=== PATIENT | female | born 1950 | race Caucasian/White ===

== ENCOUNTER → 2018-07-03 18:33 | Outpatient (CLI) | payer MEDICARE, OTHER, SELFPAY ==
[2018-07-03 18:35] LABS: Bacteria 0 SEEN /hpf (None Seen); Mucous, Urine 0 SEEN /hpf (<or=2+); Squamous Epithelial Cells - UA 0 SEEN /hpf (5-10)
[2018-07-03 18:45] LABS: Color, Urine Straw (Yellow); Glucose, Dipstick Normal (Normal); Ketone-Dipstick Negative (Negative); Leukocyte Esterase-Dipstick 500 /ul (Negative); Nitrite-Dipstick Negative (Negative); Occult Blood-Urine 250 /ul (Negative); Protein-Dipstick Negative (Negative); Specific Gravity, Urine 1.005 (1.002-1.030); Urine Bilirubin Dipstick Negative (Negative); Urine Clarity Clear (Clear); Urine Urobilinogen Normal (Normal)
[2018-07-03 19:03] LABS: White Blood Cells 25-50 SEEN /hpf (0-5)
[2018-07-03 19:04] LABS: Red Blood Cells-Urine 0-5 SEEN /hpf (0-5)
== END ==
PROVIDERS: Visit Provider Physician Assistant Surgical
DX: R39.15 Urgency of urination (principal)
CPT/HCPCS: 81001; 87077; 87086; 87088

== ENCOUNTER → 2018-09-08 14:26 | Outpatient (CLI) | payer MEDICARE, OTHER, SELFPAY ==
--- NOTE | 2018-09-08 14:29 | BI_ITS ---
MAMMOGRAPHY - BILATERAL SCREENING REASON FOR EXAM: Female, 68 years old. Routine annual screening examination. PERTINENT HISTORY: Non-contributory. TECHNIQUE: Digital bilateral breast chino (3D mammographic acquisition) in the CC and MLO projections. 2-D mediolateral oblique (MLO) and craniocaudad (CC) views of both breasts were obtained. CAD: Full Field Digital Mammography with Computer Added Detection was performed. COMPARISON: Comparison is made with prior study July 11, 2017 and March 21, 2016. FINDINGS: Breast Composition: The breasts are heterogeneously dense, which may obscure small masses. There are no dominant masses or suspicious calcifications. No other significant abnormalities are identified. There has been no significant change since the prior study. BI/SCREENING MAMM (CAD), BILAT IMPRESSION: Stable bilateral screening mammogram. Yearly follow-up mammogram recommended. (A) ASSESSMENT CATEGORY: BIRADS Category 2: Benign. A letter regarding these results will be sent to the patient by the facility within 30 days. Approximately 10% of breast cancers are not detected by mammography. A normal mammogram should not delay biopsy of a clinically suspicious abnormality. [id number] Electronically Signed: Kamari Prasad MD at 9:27 EST Tel [phone], Service support ,
--- NOTE | 2018-09-08 14:30 | BD_ITS ---
STUDY: DUAL ENERGY X-RAY ABSORPTIOMETRY / DXA REASON FOR EXAM: Female, 68 years old. The patient is postmenopausal. Loss of height. TECHNIQUE: Bone Mineral Density (BMD) measurements of lumbar spine and bilateral hips were obtained. COMPARISON: Comparison is made with prior study dated March 21, 2016. FINDINGS: Lumbar Spine (L1-L4): g/cm2 (1.176) / T-score (0.1) / Z-score (1.8) Findings are suggestive of normal bone density with a low fracture risk. Increased thoracic kyphosis. Left Femur Total: g/cm2 (0.769) / T-score (-1.9) / Z-score (-0.4) Left Femoral Neck: g/cm2 (0.797) / T-score (-1.7) / Z-score (0.0) Right Femur Total: g/cm2 (0.832) / T-score (-1.4) / Z-score (0.1) Right Femoral Neck: g/cm2 (0.841) / T-score (-1.4) / Z-score (0.3) The T-Scores on the most recent prior examination were: Lumbar Spine (L1-L4): There has been worsening of bone density since the previous examination. Left Femur Total: which represents a worsening of 7.3%. Right Femur Total: which represents a worsening of 1.8%. BD/Dexa Bone Density Study IMPRESSION: The patient is considered osteopenic as outlined below according to World Madhu Organization (WHO) criteria with a moderate fracture risk. There has been worsening of bone density since the previous examination. Reference Information: The T-score is the number of standard deviations above or below the standard which is normal for young adults at their peak bone mineral density. The World Health Organization (WHO) interprets the T-scores as follows: Above -1 Normal bone density Between -1 and -2.5 Osteopenia Equal to / or below -2.5 Osteoporosis As a practical clinical guideline, osteopenia may be graded as follows: Mild -1 through -1.5 Moderate -1.6 through -2.0 Severe -2.1 through -2.4 The Z-score is the number of standard deviations above or below age-matched controls. A Z-score of less than -1.5 would be considered abnormal. References: 1. NIH Osteoporosis and Related Bone Diseases http://www.osteo.org 2. International Society for Clinical Densitometry http://www.iscd.org 3. National Osteoporosis Foundation http://www.nof.org Electronically Signed: Kamari Prasad MD at 7:53 EST Tel [phone], Service support ,
== END ==
PROVIDERS: Family Provider Internal Medicine; PCP Internal Medicine; Visit Provider Internal Medicine
DX: Z12.31 Encounter for screening mammogram for malignant neoplasm of breast (principal); Z78.0 Asymptomatic menopausal state
CPT/HCPCS: 77063; 77067; 77080

== ENCOUNTER → 2018-10-21 10:52 | Outpatient (CLI) | payer MEDICARE, OTHER, SELFPAY ==
[2018-09-16 13:59] VITALS: BMI 30.2
--- NOTE | 2018-10-21 10:56 | ECHOD_ITS ---
Procedure This was a 2D Doppler, Color Flow transthoracic echocardiogram. The exam was of adequate technical quality. Exam performed in department. Left Ventricle Normal LV size. Left ventricular systolic function is normal. The estimated ejection fraction is 60 %. Diastolic function is indeterminate. No regional wall motion abnormalities noted. Right Ventricle Normal RV size. Normal systolic function. Atria Normal left atrium. Normal right atrium. No doppler evidence for ASD. Mitral Valve There is no mitral annular calcification. Equivocal mitral valve prolapse. Mild (1+) mitral valve insufficiency. Tricuspid Valve Normal tricuspid valve. Mild to moderate (1-2+) tricuspid valve insufficiency. Right ventricular systolic pressure estimated to be 27 mmHg. Aortic Valve Trisinus/trileaflet aortic valve. Normal aortic valve. Trivial aortic valve insufficiency. Pulmonic Valve The pulmonic valve is not well visualized. Mild (1+) pulmonic valve insufficiency. Great Vessels Normal sized aortic root. Pericardium/Pleural Small pericardial effusion. There are no echocardiographic indications of cardiac tamponade. MMode/2D Measurements & Calculations LVIDd: 4.3 cm IVSd: 0.70 cm Ao root diam: 3.3 cm LVIDs: 3.0 cm LVPWd: 0.83 cm RVDd: 3.1 cm FS: 31.3 % LAV(MOD-bp): 29.5 ml EDV(MOD-sp4): 75.6 ml EDV(MOD-sp2): 76.4 ml LAV(MOD-bp) Indexed: 18.1 ml/m2 ESV(MOD-sp4): 33.4 ml EF(MOD-sp2): 62.3 % LAV(MOD-sp2): 25.4 ml EF(MOD-sp4): 55.9 % LAV(MOD-sp4): 33.1 ml SV(MOD-sp4): 42.2 ml SV(MOD-sp2): 47.6 ml LA A4 area: 13.9 cm2 LA dimension(2D): 3.6 cm RA A4 area: 14.5 cm2 Time Measurements MV dec time: 0.21 sec Doppler Measurements & Calculations MV E max julian: 67.7 cm/sec Lat Peak E' Julian: 4.9 cm/sec Med Peak E' Julian: 3.4 cm/sec MV A max julian: 79.0 cm/sec E/E' lat: 13.8 E/E' med: 19.8 MV E/A: 0.86 Ao V2 max: 118.2 cm/sec LV V1 max: 78.6 cm/sec PA V2 max: 101.5 cm/sec Ao max P.6 mmHg LV V1 max P.5 mmHg PI end-d julian: 87.9 cm/sec TR max julian: 241.7 cm/sec TR max P.5 mmHg Interpretation Summary Left ventricular systolic function is normal. The estimated ejection fraction is 60 %. Equivocal mitral valve prolapse. Mild (1+) mitral valve insufficiency. Mild to moderate (1-2+) tricuspid valve insufficiency. Trivial aortic valve insufficiency. Mild (1+) pulmonic valve insufficiency. Small pericardial effusion. There are no echocardiographic indications of cardiac tamponade. Right ventricular systolic pressure estimated to be 27 mmHg. Diastolic function is indeterminate. Ordering Physician: Reuben Dee Referring Physician: Reuben Dee Performed By: Catia Alvarez, RDCS, RVT
== END ==
PROVIDERS: Family Provider Internal Medicine; PCP Internal Medicine; Referring Provider Internal Medicine Cardiovascular Disease; Visit Provider Internal Medicine Cardiovascular Disease
DX: I10 Essential (primary) hypertension (principal); I31.3 Pericardial effusion (noninflammatory); I38 Endocarditis, valve unspecified
CPT/HCPCS: 93306

== ENCOUNTER 2018-12-02 06:48 | Day surgery (SDC) | payer MEDICARE, OTHER, SELFPAY ==
[2018-09-16 13:59] VITALS: BMI 30.2
[2018-12-02] VITALS (7 sets, daily range): BP systolic 104–156; BP diastolic 61–90; PULSE 51–72; RESP 16–18; TEMP 36.4–37.1; O2SAT 97–100; BMI 29.7
--- NOTE | 2018-12-02 08:34 | OP.ENDO_ITS ---
Patient Name: Chaya Ravi Procedure Date: 12/02/2018 7:49 AM Date of : 1950 Age: 68 Procedure: Colonoscopy Indications: Family history of colon cancer in a first-degree relative Providers: Christophe Gomez MD Medicines: See the Anesthesia note for documentation of the administered medications Patient Profile: This is a 68 year old female. Refer to note in patient chart for documentation of history and physical. Last Colonoscopy: 5 years ago. Complications: No immediate complications. Procedure: Pre-Anesthesia Assessment: - Prior to the procedure, a History and Physical was performed, and patient medications and allergies were reviewed. The patient's tolerance of previous anesthesia was also reviewed. The risks and benefits of the procedure and the sedation options and risks were discussed with the patient. All questions were answered, and informed consent was obtained. Prior Anticoagulants: The patient has taken no previous anticoagulant or antiplatelet agents. ASA Grade Assessment: II - A patient with mild systemic disease. After reviewing the risks and benefits, the patient was deemed in satisfactory condition to undergo the procedure. After I obtained informed consent, the scope was passed under direct vision. Throughout the procedure, the patient's blood pressure, pulse, and oxygen saturations were monitored continuously. The colonoscope was introduced through the anus and advanced to the cecum, identified by appendiceal orifice and ileocecal valve. The colonoscopy was performed without difficulty. The patient tolerated the procedure well. The quality of the bowel preparation was good. Scope In: 8:02:12 AM Scope Withdrawal Time 0 hours 6 minutes 3 seconds Scope Out: 8:18:46 AM Total Procedure Duration Time 0 hours 16 minutes 34 seconds Findings: The perianal and digital rectal examinations were normal. A few small-mouthed diverticula were found in the sigmoid colon. No biopsies or other specimens were collected for this exam. Non-bleeding internal hemorrhoids were found during retroflexion. The hemorrhoids were mild and small. The exam was otherwise without abnormality. Impression: - Diverticulosis in the sigmoid colon. No specimens collected. - Non-bleeding internal hemorrhoids. - The examination was otherwise normal. Recommendation: - Discharge patient to home. - Resume previous diet. - Continue present medications. - Await pathology results. - Repeat colonoscopy in 5 years for surveillance. - Return to primary care physician PRN. Procedure Code(s): --- Professional --- 96075, Colonoscopy, flexible; diagnostic, including collection of specimen(s) by brushing or washing, when performed (separate procedure) Diagnosis Code(s): --- Professional --- K64.8, Other hemorrhoids Z80.0, Family history of malignant neoplasm of digestive organs K57.30, Diverticulosis of large intestine without perforation or abscess without bleeding CPT copyright 2017 [employer]. All rights reserved. The codes documented in this report are preliminary and upon juvenile counselor review may be revised to meet current compliance requirements. MD Christophe Domínguez MD 12/02/2018 8:34:44 AM This report has been signed electronically. Number of Addenda: 0 Note Initiated On: 12/02/2018 7:49 AM
--- NOTE | 2018-12-02 08:34 | PCM.HP.STD ---
Problem List (1) Family history of colon cancer Status: Acute History of Present Illness Date of Admission: 12/02/18 The patient is a 68 year old F who presents for a colonoscopy. Her last colonoscopy was [address] Garcia. She is unsure if he found polyps at that time. She does have a family history of colon cancer. Past Medical History Past Medical History (Chronic Problems): Chronic Problems (Last Reviewed 09/16/18 @ 14:01 by Jessica Haynes) Essential hypertension (Chronic) Medical History: Medical History (Last Reviewed 12/02/18 @ 08:35 by Christophe Gomez MD) Valvular heart disease (Acute) I38 Essential hypertension (Chronic) I10 Pericardial effusion (Acute) I31.3 Arthritis M19.90 Knee pain M25.569 Hyperlipemia E78.5 HTN (hypertension) I10 Allergies No Known Allergies Allergy (Verified 11/30/18 09:52) Home Medications: Ambulatory Orders Medication Instructions Recorded calcium carbonate 500 mg calcium 1,200 mg PO DAILY tab 07/03/18 (1,250 mg) tablet meloxicam 7.5 mg tablet 7.5 mg PO DAILY 07/03/18 potassium 99 mg tablet 99 mg PO DAILY 07/03/18 vitamins A,C,Y-acnd-vjjmvr 14,320 2 cap PO DAILY 07/03/18 unit-226 mg-200 unit capsule Cholecalciferol (VIT D3) [Vitamin 2,000 unit PO DAILY 11/30/18 D] Losartan/Hydrochlorothiazide 1 each PO DAILY 11/30/18 [Losartan-Hctz 100-25 mg Tab] Turmeric Root Extract [Turmeric] 500 mg PO DAILY 11/30/18 Surgical History: Surgical History (Last Reviewed 12/02/18 @ 08:35 by Christophe Gomez MD) History of appendectomy Z90.49 History of basal cell carcinoma excision Z98.890, Z85.828 History of section Z98.891 History of tonsillectomy Z90.89 History of tubal ligation Z98.51 Smoking Status: Never smoker Tobacco Use: Non-smoker Review of Systems Constitutional: Denies: Chills, Fever, Weight Change Cardiovascular: Denies: Chest Pain, Chest Pressure, Chest Tightness, Palpitations Respiratory: Denies: Cough, Hemoptysis, Shortness of breath at rest, Shortness of breath upon exertion, Wheezing Gastrointestinal: Denies: Abdominal Pain, Constipation, Diarrhea, Hematemesis, Nausea, Melena, Vomiting VTE Information - Inpt Only VTE Present on Admission: No VTE Mechan Device Prophylaxis: None VTE Pharm Prophylaxis ordered?: No Reason prophylaxis not ordered:: Treatment Not Indicated Patient Problems: Active and Suspected Problems (Last Reviewed 09/16/18 @ 14:01 by Jessica Haynes) Family history of colon cancer (Acute) - Physical Exam General: Alert, Oriented x3 Lungs: Clear to auscultation Cardiovascular: Regular rate, Regular Rhythm, No murmurs Abdomen: Bowel Sounds Present, Soft, Non Tender, Non-Distended Vital Signs Temp Pulse Resp BP Pulse Ox 97.6 F L 55 L 18 104/62 99 12/02/18 08:23 12/02/18 08:30 12/02/18 08:30 12/02/18 08:30 12/02/18 08:30 Oxygen Delivery Method Room Air Weight: 147 lb 0.773 oz Body Mass Index (BMI) 29.7 Assessment/Plan All Active Problems (Last Reviewed 09/16/18 @ 14:01 by Jessica Haynes) Family history of colon cancer (Acute) Valvular heart disease (Acute) Pericardial effusion (Acute) Cystitis (Acute) Plan will be to perform a colonoscopy on the patient.
== END 2018-12-02 09:08 | disposition home or self-care (01) ==
LOC: EN 06:48 → AC 06:49
PROVIDERS: Family Provider Internal Medicine; PCP Internal Medicine; Referring Provider Surgery; Visit Provider Surgery
PROC: 0DJD8ZZ Inspection of Lower Intestinal Tract, Via Natural or Artificial Opening Endoscopic (ICD-10-PCS; CPT 45378; principal; 2018-12-02 07:55)
DX: Z12.11 Encounter for screening for malignant neoplasm of colon (principal); K57.30 Diverticulosis of large intestine without perforation or abscess without bleeding; K64.8 Other hemorrhoids; N30.00 Acute cystitis without hematuria; I31.3 Pericardial effusion (noninflammatory); I10 Essential (primary) hypertension; E78.5 Hyperlipidemia, unspecified; M19.90 Unspecified osteoarthritis, unspecified site; Z78.0 Asymptomatic menopausal state; Z79.899 Other long term (current) drug therapy; Z85.828 Personal history of other malignant neoplasm of skin; Z98.51 Tubal ligation status; Z80.0 Family history of malignant neoplasm of digestive organs
CPT/HCPCS: G0105; J7120

== ENCOUNTER → 2019-10-25 13:15 | Outpatient (CLI) | payer MEDICARE, OTHER, SELFPAY ==
[2018-12-02 07:09] VITALS: BMI 29.7
[2019-10-06 10:04] VITALS: BMI 30.4
--- NOTE | 2019-10-25 13:18 | BI_ITS ---
MAMMOGRAPHY - BILATERAL SCREENING REASON FOR EXAM: Female, 69 years old. Routine annual screening examination. PERTINENT HISTORY: Non-contributory. TECHNIQUE: Digital bilateral breast victor manuel (3D mammographic acquisition) in the CC and MLO projections. 2-D mediolateral oblique (MLO) and craniocaudad (CC) views of both breasts were obtained. CAD: Full Field Digital Mammography with Computer Added Detection was performed. COMPARISON: Comparison is made with prior study dated September 08, 2018 and July 11, 2017. FINDINGS: Breast Composition: The breasts are heterogeneously dense, which may obscure small masses. There are no dominant masses or suspicious calcifications. No other significant abnormalities are identified. There has been no significant change since the prior study. BI/SCREEN MAMM (CAD) W/VICTOR MANUEL BILAT IMPRESSION: Stable bilateral screening mammogram. Yearly follow-up mammogram recommended. (A) ASSESSMENT CATEGORY: BIRADS Category 1: Negative. A letter regarding these results will be sent to the patient by the facility within 30 days. Approximately 10% of breast cancers are not detected by mammography. A normal mammogram should not delay biopsy of a clinically suspicious abnormality. [id number] Electronically Signed: Kamari Prasad, at 14:23 EST , Service support ,
== END ==
PROVIDERS: Family Provider Internal Medicine; PCP Internal Medicine; Referring Provider Internal Medicine; Visit Provider Internal Medicine
DX: Z12.31 Encounter for screening mammogram for malignant neoplasm of breast (principal)
CPT/HCPCS: 77063; 77067

== ENCOUNTER 2019-12-13 09:00 | Outpatient (RCR) | payer MEDICARE, OTHER, SELFPAY ==
[2019-10-06 10:04] VITALS: BMI 30.4
--- NOTE | 2019-11-19 09:09 | HP.PTEVAL ---
Patient's Visit Information FRANCINE SWEENEY is a 69 year old F referred to Physical Therapy by Hubert Pretty MD with a diagnosis of Left Total Knee Replacement. Date of Evaluation: 11/19/19 Physical Therapist: Cammy Juan DPT - Visit Plan Frequency: 3x /Week Duration: 3 Weeks Plan: Focus on LE strength and ROM with functional mobility. - Subjective Findings: Left TKR by Dr. Pretty on November 03, 2019- went home the next day. Lives in a double story home and is able to go up/down. Ditched the walker maybe a wek and has been on a cane since. Fully I prior to surgery- wants to get back to Kayaking. Pain at its worst is a 8/10 Agg: usually towards the end of the pain medication, movement. Pain is more of a deep ache and its around the whole knee. One time a day the top of the left foot is sore- no N/T in the foot. She saw MD on Friday who encouraged her to put a heating pad on the calf and ice on the knee- took the stephanie out Friday. Sleep: is normally a belly sleeper- disturbed. Had someone come to the house and they gave her exercises that she is doing faithfully 3x a day. PMHx:none Meds: none- Is still taking pain meds every 6 hours - Objective Posture: FH, RS, increased kyphosis- can correct but does not maintain. Gait: antalgic- single point cane- decreased stance on the left LE with poor heel/toe pattern. Stairs: non recip with 1 HR and single point cane. HR/TR: able with UE A. SLS: weight shift but unable to SLS without UE A. Observation: steri strips intact- no s/s of infection. Palpatoin: tender along medial and lateral joint line- posterior knee. ROM: 0-95 degrees with pain at end range. Strength: Ankle: 5/5, Knee: 4/5, Hip: 4-/5 Core: fair minus. Flex: HS: severe, Gastroc: severe - Goals Goal 1:: Patient will be I with HEP and progression Goal Time Frame: 4-6 Weeks Goal 2:: Patient will ambulate >300 feet with normalized gait pattern with no AD Goal Time Frame: 4-6 Weeks Goal 3:: Patient will asc/desc 8 stairs recip with no HR Goal Time Frame: 4-6 Weeks Goal 4:: Patient will demo 0-125 degrees in the left knee Goal Time Frame: 4-6 Weeks Goal 5:: Patient will demo 5/5 strength in LE where deficit. Goal Time Frame: 4-6 Weeks - Rehabilitation Potential Physical Therapy Diagnosis: Patient presents with hypomobility- she has decreased ROM, strength, flex and muscular endurance s/p left TKR leading to abnormal gait pattern and decreased participation in ADL's. Rehabilitation Potential: Good - Anticipated Interventions Patient/Client Instruction: Educate patient on: Benefits of Fitness Program Therapeutic Exercise to Include: Strength training, Endurance training, Balance training, Body mechanics, Postural training, Flexibilty training, Gait and locomotor training, Neuromotor development, Passive ROM, Active ROM For the Purpose of:: To improve muscle performance and motor function TENS: Yes Cryotherapy (ice pack, ice massage): Yes Thermo therapy (hot pack): Yes Ultrasound (thermal/non thermal): No Thank you for the opportunity to evaluate your patient. For Medicare and Medicare HMO plans, please review the plan of care and approve it. It will need to be FAXED BACK to us at [phone] for Medicare purposes. For Medicare only, by signing this I certify the plan of care. Please let me know if there are questions or concerns regarding this plan of care. Physician Signature: Date:
--- NOTE | 2019-12-13 09:28 | HP.PTDCSUM_ITS ---
HP - PT D/C Summary It has been my pleasure to treat FRANCINE SWEENEY under orders from Hubert Pretty MD, for the diagnosis of Left Total Knee Replacement for a total of 10 visit(s). Discharge Date: Please see the following information for a summary of their discharge status. - Subjective Subjective: Patient reports that she is happy with progress- MD feels that she is doing great- her biggest complaint is that it still feels stiff. The only thing she is taking is an Ibuprofen as needed. She is only getting up 1x during the night to use the restroom. - Overall Improvement % Improvement: 95 - Objective Objective/Function: Posture: good throughout. Gait: no devaition noted. Stairs: asc/desc 8 recip with 1 HR. SLS: 15 sec no LOB. HR/TR: able. ROM: 0- 118 degrees. Strength: 5/5 throughout LE - Goals Goal 1:: Patient will be I with [facility] and progression Goal Progress: Goal Met Goal 2:: Patient will ambulate >300 feet with normalized gait pattern with no AD Goal Progress: Goal Met Goal 3:: Patient will asc/desc 8 stairs recip with no HR Goal Progress: Goal Met Goal 4:: Patient will demo 0-115 degrees in the left knee Goal Progress: Goal Met Goal 5:: Patient will demo 5/5 strength in LE where deficit. Goal Progress: Goal Met - Plan Plan: Discharge to [facility] with yee odonnell - D/C Information If there are questions or concerns regarding this patient's physical therapy, please feel free to call me at [phone]. Thank you for the referral of this patient. Sincerely, Cammy Juan DPT
== END 2019-12-13 19:00 | disposition home or self-care (01) ==
LOC: PT 09:00
PROVIDERS: PCP Internal Medicine; Referring Provider Orthopaedic Surgery; Visit Provider Orthopaedic Surgery
DX: M17.12 Unilateral primary osteoarthritis, left knee (principal)
CPT/HCPCS: 97110; 97162; 97164

== ENCOUNTER → 2020-10-18 09:21 | Outpatient (CLI) | payer MEDICARE, OTHER, SELFPAY ==
[2019-10-06 10:04] VITALS: BMI 30.4
--- NOTE | 2020-10-18 09:30 | BD_ITS ---
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 COMPARISON: Comparison is made with prior study dated 09/08/2018. FINDINGS: Lumbar Spine (L1-L4): g/cm2 (1.192) / T-score (0.2) / Z-score (1.9) Findings are suggestive of normal bone density with a low fracture risk. Levoscoliosis. Left Femur Total: g/cm2 (0.790) / T-score (-1.7) / Z-score (-0.1) Left Femoral Neck: g/cm2 (0.765) / T-score (-2.0) / Z-score (-0.2) Right Femur Total: g/cm2 (0.781) / T-score (-1.8) / Z-score (-0.2) Right Femoral Neck: g/cm2 (0.861) / T-score (-1.3) / Z-score (0.5) The T-Scores on the most recent prior examination were: Lumbar Spine (L1-L4): There has been worsening of bone density since the previous examination. Left Femur Total: which represents an improvement of 2.7%. Right Femur Total: which represents a worsening of 6.1%. BD/Dexa Bone Density Study IMPRESSION: The patient is considered osteopenic as outlined below according to World Madhu Organization (WHO) criteria with a moderate fracture risk. There has been worsening of bone density since the previous examination. Reference Information: The T-score is the number of standard deviations above or below the standard which is normal for young adults at their peak bone mineral density. The World Health Organization (WHO) interprets the T-scores as follows: Above -1 Normal bone density Between -1 and -2.5 Osteopenia Equal to / or below -2.5 Osteoporosis As a practical clinical guideline, osteopenia may be graded as follows: Mild -1 through -1.5 Moderate -1.6 through -2.0 Severe -2.1 through -2.4 The Z-score is the number of standard deviations above or below age-matched controls. A Z-score of less than -1.5 would be considered abnormal. References: 1. NIH Osteoporosis and Related Bone Diseases www osteo.org 2. International Society for Clinical Densitometry www iscd.org 3. National Osteoporosis Foundation www nof.org Electronically Signed: Kamari Prasad, at 10:04 EST , Service support ,
== END ==
PROVIDERS: PCP Internal Medicine; Referring Provider Internal Medicine; Visit Provider Internal Medicine
DX: Z78.0 Asymptomatic menopausal state (principal); E55.9 Vitamin D deficiency, unspecified
CPT/HCPCS: 77080

== ENCOUNTER → 2021-05-09 10:52 | Outpatient (CLI) | payer MEDICARE, OTHER, SELFPAY ==
[2019-10-06 10:04] VITALS: BMI 30.4
--- NOTE | 2021-05-09 10:55 | BI_ITS ---
MAMMOGRAPHY - BILATERAL SCREENING REASON FOR EXAM: Female, 71 years old. Routine annual screening examination. PERTINENT HISTORY: Non-contributory. TECHNIQUE: Digital bilateral breast victor manuel (3D mammographic acquisition) in the CC and MLO projections. 2-D mediolateral oblique (MLO) and craniocaudad (CC) views of both breasts were obtained. CAD: Full Field Digital Mammography with Computer Added Detection was performed. COMPARISON: Comparison is made with prior study dated 10/25/2019 and 09/08/2018. FINDINGS: Breast Composition: The breasts are heterogeneously dense, which may obscure small masses. There are no dominant masses or suspicious calcifications. No other significant abnormalities are identified. There has been no significant change since the prior study. BI/SCRN MAMM (CAD)W/VICTOR MANUEL BILAT IMPRESSION: Stable bilateral screening mammogram. Yearly follow-up mammogram recommended. (A) ASSESSMENT CATEGORY: BIRADS Category 1: Negative. A letter regarding these results will be sent to the patient by the facility within 30 days. Approximately 10% of breast cancers are not detected by mammography. A normal mammogram should not delay biopsy of a clinically suspicious abnormality. [id number] Electronically Signed: Kamari Prasad MD at 12:24 EDT , Service support ,
== END ==
PROVIDERS: PCP Internal Medicine; Referring Provider Internal Medicine; Visit Provider Internal Medicine
DX: Z12.31 Encounter for screening mammogram for malignant neoplasm of breast (principal)
CPT/HCPCS: 77063; 77067

== ENCOUNTER → 2022-10-22 | Outpatient (CLI) | payer MEDICARE, OTHER, SELFPAY ==
--- NOTE | 2022-10-22 09:51 | BI_ITS ---
MAMMOGRAPHY - BILATERAL SCREENING REASON FOR EXAM: Female, 72 years old. Routine annual screening examination. PERTINENT HISTORY: Non-contributory. TECHNIQUE: Digital bilateral breast victor manuel (3D mammographic acquisition) in the CC and MLO projections. 2-D mediolateral oblique (MLO) and craniocaudad (CC) views of both breasts were obtained. CAD: Full Field Digital Mammography with Computer Added Detection was performed. COMPARISON: Comparison is made with prior study dated 05/09/2021 and 10/25/2019. FINDINGS: Breast Composition: The breasts are heterogeneously dense, which may obscure small masses. There are no dominant masses or suspicious calcifications. No other significant abnormalities are identified. There has been no significant change since the prior study. BI/SCRN MAMM (CAD)W/VICTOR MANUEL BILAT IMPRESSION: Stable bilateral screening mammogram. Yearly follow-up mammogram recommended. (A) ASSESSMENT CATEGORY: BIRADS Category 1: Negative. A letter regarding these results will be sent to the patient by the facility within 30 days. Approximately 10% of breast cancers are not detected by mammography. A normal mammogram should not delay biopsy of a clinically suspicious abnormality. [id number] Electronically Signed: Kamari Prasad MD at 12:49 EST ,
--- NOTE | 2022-10-22 09:55 | BD_ITS ---
STUDY: DUAL ENERGY X-RAY ABSORPTIOMETRY / DXA REASON FOR EXAM: Female, 72 years old. [id number] TECHNIQUE: Bone Mineral Density (BMD) measurements of lumbar spine and bilateral hips were obtained. COMPARISON: Comparison is made with prior study of 10/18/2020. FINDINGS: Lumbar Spine (L1-L4): g/cm2 (0.962) / T-score (-0.7) / Z-score (1.7) Findings are suggestive of normal bone density with a low fracture risk. Left Femur Total: g/cm2 (0.725) / T-score (-1.8) / Z-score (0.0) Left Femoral Neck: g/cm2 (0.700) / T-score (-1.3) / Z-score (0.7) Right Femur Total: g/cm2 (0.734) / T-score (-1.7) / Z-score (0.1) Right Femoral Neck: g/cm2 (0.710) / T-score (-1.3) / Z-score (0.8) The T-Scores on the most recent prior examination were: Lumbar Spine (L1-L4): There has been worsening of bone density since the previous examination. Left Femur Total: which represents a worsening of 0.8%. Right Femur Total: which represents an improvement of 1.8%. BD/Dexa Bone Density Study IMPRESSION: The patient is considered osteopenic as outlined below according to World Madhu Organization (WHO) criteria with a moderate fracture risk. There has been worsening of bone density since the previous examination. Reference Information: The T-score is the number of standard deviations above or below the standard which is normal for young adults at their peak bone mineral density. The World Health Organization (WHO) interprets the T-scores as follows: Above -1 Normal bone density Between -1 and -2.5 Osteopenia Equal to / or below -2.5 Osteoporosis As a practical clinical guideline, osteopenia may be graded as follows: Mild -1 through -1.5 Moderate -1.6 through -2.0 Severe -2.1 through -2.4 The Z-score is the number of standard deviations above or below age-matched controls. A Z-score of less than -1.5 would be considered abnormal. References: 1. NIH Osteoporosis and Related Bone Diseases www osteo.org 2. International Society for Clinical Densitometry www iscd.org 3. National Osteoporosis Foundation www nof.org Electronically Signed: Kamari Prasad MD at 13:12 EST ,
== END | disposition home or self-care (01) ==
LOC: OPBD 09:49
PROVIDERS: PCP Internal Medicine; Referring Provider Internal Medicine; Visit Provider Internal Medicine
DX: Z12.31 Encounter for screening mammogram for malignant neoplasm of breast (principal); M85.80 Other specified disorders of bone density and structure, unspecified site; Z78.0 Asymptomatic menopausal state
CPT/HCPCS: 77063; 77067; 77080

== ENCOUNTER → 2023-11-10 | Outpatient (CLI) | payer MEDICARE, OTHER, SELFPAY ==
--- NOTE | 2023-11-10 12:22 | BI_ITS ---
MAMMOGRAPHY - BILATERAL SCREENING REASON FOR EXAM: Female, 73 years old. Routine annual screening examination. PERTINENT HISTORY: Non-contributory. TECHNIQUE: Digital bilateral breast victor manuel (3D mammographic acquisition) in the CC and MLO projections. 2-D mediolateral oblique (MLO) and craniocaudad (CC) views of both breasts were obtained. CAD: Full Field Digital Mammography with Computer Added Detection was performed. COMPARISON: Comparison is made with prior study dated October 22, 2022 and May 09, 2021. FINDINGS: Breast Composition: The breasts are heterogeneously dense, which may obscure small masses. There are no dominant masses or suspicious calcifications. No other significant abnormalities are identified. There has been no significant change since the prior study. BI/SCRN MAMM (CAD)W/VICTOR MANUEL BILAT IMPRESSION: Stable bilateral screening mammogram. Yearly follow-up mammogram recommended. (A) ASSESSMENT CATEGORY: BIRADS Category 1: Negative. A letter regarding these results will be sent to the patient by the facility within 30 days. Approximately 10% of breast cancers are not detected by mammography. A normal mammogram should not delay biopsy of a clinically suspicious abnormality. [id number] Electronically Signed: Kamari Prasad MD at 15:11 EST ,
== END | disposition home or self-care (01) ==
LOC: OPBI 12:22
PROVIDERS: PCP Internal Medicine; Referring Provider Internal Medicine; Visit Provider Internal Medicine
DX: Z12.31 Encounter for screening mammogram for malignant neoplasm of breast (principal)
CPT/HCPCS: 77063; 77067

== ENCOUNTER 2024-06-24 15:00 | Outpatient (RCR) | payer MEDICARE, OTHER, SELFPAY ==
--- NOTE | 2024-04-14 17:33 | HP.PTEVAL ---
Patient's Visit Information Visit Information Visit Information: FRANCINE SWEENEY is a 74 year old F referred to Physical Therapy by Eleanor Peraza MD with a diagnosis of Right Sided Sciatica. Date of Evaluation: 04/14/24 Physical Therapist: Cammy Juan DPT Visit Plan Frequency: 2x /Week Duration: 4 Weeks Plan: Aquatics- focus on LE and core strength/stabilization- traction in deep end as tolerated HEP Given IE: piriformis stretch Subjective Subjective: Patient reports that she has right sided sciatica- when she had her left TKR it took them 6x to have the epidural due to the calcium build up. She does have some back pain but mostly the the pain radiates down the outside of the right leg- the pain starts right away when she sits-the back pain is only if she is very active and bending forwards the leg pain is when she sits. Sitting is the worst- she always has to have a pillow- she has tried exercises, sitting on a tennis ball and nothing really helps. The pain travels to the mid almaguer- Worst: 6-7/10. If she gets up and moves the pain goes away immediately. She use to be able to walk 2 miles but she is not able to walk as far anymore. She does not report weakness or buckling. She has had a recent fall- but not due to the leg. She works out 12 min on TM- weights UE and LE- balance- 2x a week. Sleep: not disturbed- no pain flat on her back- stomach sleeper PMHx/Meds: see list in chart Objective Objective: Posture: forward head, rounded shoulders- can correct with verbal cues but does not maintain Gait: no deviation noted HR/TR: able with UE A SLS: 10 sec without loss of balance ROM: WNL in all planes Strength: Core: fair minus, Hip: 4/5 throughout with the exception of ER: 3+/5, Knee: 4+/5, Ankle: 5/5 Flex: HS: no restriction, Gastroc: no restriction: Piriformis: moderate Palpation: tender along piriformis and calcification along paraspinals and firm end feel with PA glides Special Tests L/S Slump test left side: Negative L/S Slump test right side: Negative L/S Left Straight Leg Raise: Negative L/S Right Straight Leg Raise: Negative Balance/Special Test Scores Lower Extremity Functional Score: 40 Goals Goal 1:: Patient will be I with HEP and progression Goal Time Frame: 4-6 Weeks Goal 2:: Patient will maintain proper posture t/o tx session to demo increased core s/s Goal Time Frame: 4-6 Weeks Goal 3:: Patient will report no radicular s/s for 1 week Goal Time Frame: 4-6 Weeks Goal 4:: Patient will report 80% improvement Goal Time Frame: 4-6 Weeks Rehabilitation Potential Physical Therapy Diagnosis: Patient presents with hypomobility- she has decreased LE and core strength/stabilization, Rehabilitation Potential: Fair Anticipated Interventions Patient/Client Instruction: Educate patient on: Benefits of Fitness Program Therapeutic Exercise to Include: Strength training, Endurance training, Balance training, Coordination, Agility training, Body mechanics, Postural training, Flexibilty training, Gait and locomotor training, Neuromotor development, In an aquatic setting, Passive ROM, Active ROM, Dynamic Lumbar Stabilization and Scapular Strength/Stabilization Text: Thank you for the opportunity to evaluate your patient. For Medicare and Medicare HMO plans, please review the plan of care and approve it. It will need to be FAXED BACK to us at [phone] for Medicare purposes. For Medicare only, by signing this I certify the plan of care. Please let me know if there are questions or concerns regarding this plan of care. Physician Signature: Date:
--- NOTE | 2024-08-13 09:17 | HP.PT.NRP ---
Patient Information Patient Information: FRANCINE SWEENEY was seen in my office for initial evaluation on 04/14/24. The following Plan of Care was established for this patient: POC Established Initial Frequency: 2x /Week Initial Duration: 4 Weeks Anticipated Interventions Patient/Client Instruction: Educate patient on: Benefits of Fitness Program Therapeutic Exercise to Include: Strength training, Endurance training, Balance training, Coordination, Agility training, Body mechanics, Postural training, Flexibilty training, Gait and locomotor training, Neuromotor development, In an aquatic setting, Passive ROM, Active ROM, Dynamic Lumbar Stabilization and Scapular Strength/Stabilization Last Seen Last Seen: This patient was last seen in our office . Pertinent comments regarding their Physical therapy will appear below: Patient has not attended PT in over 30 days- she has a comprehensive home exercises program for both water and land and is appropriate to continue independently and follow up as needed. At this point I will be discontinuing this patient from physical therapy. I would be happy to see this patient again in the future if found appropriate by the physician. Thank you! Cammy Juan, KARENT Balance/Gait/Functional tests Balance/Special Test Scores Oswestry Low Back Score: 9 Lower Extremity Functional Score: 40
== END 2024-06-24 19:00 | disposition home or self-care (01) ==
LOC: PT 15:00
PROVIDERS: PCP Family Medicine; Referring Provider Family Medicine; Visit Provider Family Medicine
DX: M54.31 Sciatica, right side (principal)
CPT/HCPCS: 97110; 97113; 97162; 97530

== ENCOUNTER → 2024-10-26 | Outpatient (CLI) | payer MEDICARE, OTHER, SELFPAY ==
[2024-10-26 10:25] LABS: Absolute Lymphocyte Count 1.68 X10^3/uL (0.83-4.51); Absolute Neutrophil Count 2.6 X10^3/uL (2.0-7.7); Basophil# 0.06 X10^3/uL; Basophil% 1.2 % (0-1); Eosinophil# 0.22 X10^3/uL; Eosinophils% 4.4 % (0-5); Hematocrit 40.1 % (37-47); Hemoglobin 12.9 g/dL (12.0-15.0); Lymphocyte # 1.68 X10^3/ul (0.83-4.51); Lymphocyte % 33.6 % (19-41); Mean Corp Hgb Conc 32.2 g/dL (32-36); Mean Corpuscular Hgb 30.1 pg (27.0-32.0); Mean Corpuscular Volume 93.5 fL (81-99); Mean Platelet Vol. 9.6 fl (6.2-12.0); Monocyte# 0.44 X10^3/uL; Monocyte% 8.8 % (0-10); NRBC Flagged by Analyzer 0 % (0-5); Neutrophil # 2.58 X10^3/uL (2.7-7.7); Neutrophil % 51.6 % (47-70); Platelet Count 328 K/mm3 (150-450); RBC Distribution Width CV 13.2 % (11.6-14.6); RBC Distribution Width SD 44.9 fl (35.1-43.9); Red Blood Count 4.29 M/mm3 (4.2-5.4)
[2024-10-26 10:40] LABS: ALB/GLOB Ratio 1.1 RATIO (0.9-2.4); AST(SGOT) 20 U/L (15-37); Alanine Aminotransfer ALT/SGPT 22 U/L (13-56); Albumin, Serum 3.6 g/dL (3.2-5.0); Alkaline Phosphatase 153 U/L (45-117); Anion Gap 3 (5-15); BUN 19 mg/dL (7-18); BUN/Creat Ratio 22.4 RATIO (10-20); Calcium,Total 9.7 mg/dL (8.5-10.1); Chloride 104 mmol/L (98-107); Cholesterol 235 mg/dL (200); Creatinine, Serum 0.85 mg/dL (0.55-1.02); EST Glomerular Filtration Rate 69 mL/min (>60); Est Glom Filt Rate - Afr Amer 84 mL/min (>60); Globulin 3.4 g/dL (2.2-4.2); Glucose 98 mg/dL (74-106); High Density Lipoprotein 96 mg/dL; Potassium 3.9 mmol/L (3.5-5.1); Sodium Level 138 mmol/L (136-145); Triglycerides 81 mg/dL; Very Low Density Lipoprotein 16 mg/dL (5-40)
== END | disposition home or self-care (01) ==
LOC: MTLAB 08:50
PROVIDERS: PCP Family Medicine; Referring Provider Family Medicine; Visit Provider Family Medicine
DX: I10 Essential (primary) hypertension (principal)
CPT/HCPCS: 36415; 80053; 80061; 85025

== ENCOUNTER 2024-12-30 07:22 | Day surgery (SDC) | payer MEDICARE, OTHER, SELFPAY ==
--- NOTE | 2024-12-29 10:57 | PAT.ANESEVAL ---
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 When Was Last Pacemaker Check QUESTION #4 FULL TEXT: You/Your Family Experience fever (hyperthermia) with Anesthesia Last Oral Intake Last Oral intake: Last Oral Intake NPO since Meds taken in AM with sips of water? Meds patient instructed to take am of surgery PONV PONV - paper core machine operator: PONV - paper core machine operator Female Yes 12/29/24 09:34 HX of Motion Sickness No 12/29/24 09:34 HX of N/V After Surgery No 12/29/24 09:34 Non-Smoker Yes 12/29/24 09:34 Duration of Surgery greater No 12/29/24 09:34 than 60 minutes Number of Risk Factors 2 12/29/24 09:34 PONV Score Moderate Risk 12/29/24 09:34 Height & Weight Height & Weight: Anesthesia: Height & Weight Height 5 ft 11/03/24 09:27 Respiratory Assessment Respiratory Assessment - paper core machine operator: Respiratory Tract Infection Hx - paper core machine operator Hx Respiratory Tract Infection No 12/29/24 09:34 STOP Sleep Apnea STOP Sleep Apnea - paper core machine operator: STOP Sleep Apnea - paper core machine operator Hx Hypertension Yes: CONTROLLED WITH MED 12/29/24 09:34 Hx Sleep Apnea No 12/29/24 09:34 CPAP BIPAP Do you snore loudly (louder No 12/29/24 09:34 than talking or can be heard Do you often feel tired/ No 12/29/24 09:34 fatigued/ sleepy during daytime? Has anyone observed you stop No 12/29/24 09:34 breathing during sleep? STOP Results Negative 12/29/24 09:34 QUESTION #5 FULL TEXT : Do you snore loudly (louder than talking or can be heard through closed doors)? 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 Specify any problems Hx of Preganancy in last 3 N/A 12/29/24 09:34 Months Nurse Filling Out Transfusion NBUCHER 12/29/24 09:34 & Questions: Date: 12/29/24 12/29/24 09:34 Time: 09:34 12/29/24 09:34 Patient unable to answer at this time (ie. confused, unrespo /Reproduction History /Reproductive History - paper core machine operator: /Reproductive Hx- paper core machine operator Hx Now No 12/29/24 09:34 Gestational Age (in weeks): EDC: Hx Hx Para Hx Section SAB No 12/29/24 09:34 [facility] Medical History (Updated 12/29/24 @ 09:39 by Palak Felder) Wears glasses Cancer Non-smoker History of echocardiogram History of stress test Cardiology follow-up encounter Hyperlipemia Valvular heart disease Essential hypertension Pericardial effusion Knee pain Arthritis HTN (hypertension) Home Medications ?Medication ?Instructions ?Recorded ?Last Taken ?Type calcium carbonate (Calcium 500) 1,200 mg PO DAILY 07/03/18 Unknown History meloxicam 7.5 mg tablet 7.5 mg PO DAILY 07/03/18 Unknown History vitamins A,C,E-rjyi-faumtf 4,296 2 cap PO DAILY 07/03/18 Unknown History mcg-226 mg-90 mg capsule (PreserVision AREDS) cholecalciferol (vitamin D3) 25 2,000 unit PO DAILY 11/30/18 Unknown History mcg (1,000 unit) tablet losartan 100 0.5 tab PO DAILY 11/30/18 Unknown History mg-hydrochlorothiazide 25 mg tablet turmeric root extract 500 mg 500 mg PO DAILY 11/30/18 Unknown History capsule Allergy/AdvReac Type Severity Reaction Status Date / Time No Known Allergies Allergy Verified 12/29/24 09:32 Family History Other Bladder cancer Colon cancer Surgical History (Updated 12/29/24 @ 09:39 by Palak Felder) History of eye surgery History of total left knee replacement History of basal cell carcinoma excision History of tonsillectomy History of appendectomy History of tubal ligation History of section Social History Smoking Status: Never smoker alcohol intake: current Alcohol type: wine Audit: Pertinent Findings Pertinent Findings Echo (EF%) pertinent findings: 10/21/2018. EF 60%. PA pressure 27 Consult pertinent findings: Cardiology 10/06/2019. Hypertension. Resolved. Pericardial effusion. Stable. Small pericardial effusion. Asymptomatic. No additional testing. Recommendation Anesthesia Recommendation Anesthesia recommendation: OPTIMIZED for anesthesia
[2024-12-30] VITALS (17 sets, daily range): BP systolic 84–136; BP diastolic 47–74; PULSE 63–90; RESP 16–18; TEMP 36.1–36.5; O2SAT 78–100
--- NOTE | 2024-12-30 08:14 | PRE.ANES_ITS ---
ASA Classification* ASA Classification ASA Classification: 2 Assessment & Plan Anesthesia* Anesthesia Assessment Anesthesia Assessment: Discussed sedation and/or anesthesia options, risks, benefits, and alternatives with patient/parents/legal guardian/POA. Questions invited. The patient/parents/legal guardian/POA seems to understand and agrees to proceed with anesthesia plan. Reviewed the physical assessment, medical history, allergy history and patient home medications list prior to surgery/procedure/anesthetic and documented any changes. Performed airway and anesthesia risk assessments. Anesthesia Type Anesthesia Type: General History Source History Obtained from:: Patient and Chart Anesthesia Focused Assessment* Temperature: 97.1 F Pulse Rate: 67 Blood Pressure: 136/66 Respiratory Rate: 16 Pulse Ox: 100 Oxygen Delivery Method: Room Air Airway Assessment Mouth opens: >3 cm Mallampati Score: I Teeth Condition: Intact Neck Range of motion (ROM): Full ROM Focused Labs Anesthesia Preop lab: CBC WBC 5.0 K/mm3 (4.4-11.0) 10/26/24 08:57 10/26/24 RBC 4.29 M/mm3 (4.2-5.4) 10/26/24 08:57 10/26/24 Hgb 12.9 g/dL (12.0-15.0) 10/26/24 08:57 10/26/24 Hct 40.1 % (37-47) 10/26/24 08:57 10/26/24 Plt Count 328 K/mm3 (150-450) 10/26/24 08:57 10/26/24 CHEMISTRY Potassium 3.9 mmol/L (3.5-5.1) 10/26/24 08:57 10/26/24 Sodium 138 mmol/L (136-145) 10/26/24 08:57 10/26/24 BUN 19 mg/dL (7-18) H 10/26/24 08:57 10/26/24 Creatinine 0.85 mg/dL (0.55-1.02) 10/26/24 08:57 10/26/24 Glucose 98 mg/dL (74-106) 10/26/24 08:57 10/26/24 COAG Pre-Assessment Diagnosis/Proposed Procedure Planned Operative Procedure(s): CSCOPE Anesthesia History 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 When Was Last Pacemaker Check QUESTION #4 FULL TEXT: You/Your Family Experience fever (hyperthermia) with Anesthesia Last Oral Intake Last Oral intake: Last Oral Intake NPO since 04:30 12/30/24 07:46 Meds taken in AM with sips of Yes 12/30/24 07:46 water? Meds patient instructed to take am of surgery PONV PONV - environmental control administrator: PONV - environmental control administrator Female Yes 12/29/24 09:34 HX of Motion Sickness No 12/29/24 09:34 HX of N/V After Surgery No 12/29/24 09:34 Non-Smoker Yes 12/29/24 09:34 Duration of Surgery greater No 12/29/24 09:34 than 60 minutes Number of Risk Factors 2 12/29/24 09:34 PONV Score Moderate Risk 12/29/24 09:34 Height & Weight Height & Weight: Anesthesia: Height & Weight Height 5 ft 12/30/24 07:46 Weight: 69.8 kg 12/30/24 07:46 Body Mass Index (BMI) 30.0 12/30/24 07:46 Respiratory Assessment Respiratory Assessment - environmental control administrator: Respiratory Tract Infection Hx - environmental control administrator Hx Respiratory Tract Infection No 12/29/24 09:34 STOP Sleep Apnea STOP Sleep Apnea - environmental control administrator: STOP Sleep Apnea - environmental control administrator Hx Hypertension Yes: CONTROLLED WITH MED 12/29/24 09:34 Hx Sleep Apnea No 12/29/24 09:34 CPAP BIPAP Do you snore loudly (louder No 12/29/24 09:34 than talking or can be heard Do you often feel tired/ No 12/29/24 09:34 fatigued/ sleepy during daytime? Has anyone observed you stop No 12/29/24 09:34 breathing during sleep? STOP Results Negative 12/29/24 09:34 QUESTION #5 FULL TEXT : Do you snore loudly (louder than talking or can be heard through closed doors)? 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 Specify any problems Hx of Preganancy in last 3 N/A 12/29/24 09:34 Months Nurse Filling Out Transfusion NBUCHER 12/29/24 09:34 & Questions: Date: 12/29/24 12/29/24 09:34 Time: 09:34 12/29/24 09:34 Patient unable to answer at this time (ie. confused, unrespo /Reproduction History /Reproductive History - environmental control administrator: /Reproductive Hx- environmental control administrator Hx Now No 12/29/24 09:34 Gestational Age (in weeks): EDC: Hx Hx Para Hx Section SAB No 12/29/24 09:34 PFSH Medical History Wears glasses Cancer Non-smoker History of echocardiogram History of stress test Cardiology follow-up encounter Hyperlipemia Valvular heart disease Essential hypertension Pericardial effusion Knee pain Arthritis HTN (hypertension) Home Medications ?Medication ?Instructions ?Recorded ?Last Taken ?Type calcium carbonate (Calcium 500) 1,200 mg PO DAILY 06/20 02/04 Unknown History meloxicam 7.5 mg tablet 7.5 mg PO DAILY 07/03/18 Unk nown History vitamins A,C,Z-gawl-zikbvi 4,296 2 cap PO DAILY Unknown History mcg-226 mg-90 mg capsule (PreserVision AREDS) cholecalciferol (vitamin D3) 25 2,000 unit PO DAILY Unknown History mcg (1,000 unit) tablet losartan 100 0.5 tab PO DAILY 11/30/18 05:30 History mg-hydrochlorothiazide 25 mg tablet turmeric root extract 500 mg 500 mg PO DAILY 11/30/18 Unknown History capsule Allergy/AdvReac Type Severity Reaction Status Date / Time No Known Allergies Allergy Verified 12/30/24 07:45 Family History Other Bladder cancer Colon cancer Surgical History (Updated 12/29/24 @ 09:39 by Palak Felder) History of eye surgery History of total left knee replacement History of basal cell carcinoma excision History of tonsillectomy History of appendectomy History of tubal ligation History of section Social History Smoking Status: Never smoker alcohol intake: current Alcohol type: wine Prior Cardiac Testing/Procedures Prior Cardiac Testing/Procedures: Echocardiogram (Interpretation Summary Left ventricular systolic function is normal. The estimated ejection fraction is 60 %. Equivocal mitral valve prolapse. Mild (1+) mitral valve insufficiency. Mild to moderate (1-2+) tricuspid valve insufficiency. Trivial aortic valve insufficiency. Mild (1+) pulmonic valve ins) Review of Systems (Anesthesia) ROS Narrative System reviewed and no additional complaints, except as documented. Physical Exam Const alert, oriented x3 and average body habitus Resp normal respiratory effort, normal air movement and clear to auscultation bilaterally Cardio regular rate, regular rhythm, no murmurs and diaphoretic
--- NOTE | 2024-12-30 08:30 | EGD_PTH ---
PATIENT: FRANCINE SWEENEY LOC: EN U#:[id number] AGE/SX: 74/F ROOM: RE12/30/[address]: Dr. Agustín Elkins MD : [id number] BED: DIS: 12/30/2024 SPEC #: [id number] RECD: 12/30/24 13:49 STATUS: JUNAID NASREEN #: [id number] ALYSON: 12/30/24 08:[address]: Agustín Elkins DEPT: SURGICAL PATHOLOGY RECD BY: Brody Murphy ENTERED: 12/30/24 13:49 SP TYPE: EGD BIOPSY OTHR DR: Eleanor Peraza MD Tissues: A - Rectum, NOS Procedures: Surgery Specimen Level IV HEADER OPERATION: Colonoscopy, polypectomy PRE-OP DIAGNOSIS: Positive colorectal cancer screening using Cologuard TISSUE SUBMITTED: A- Rectal polyp snare and biopsy MICROSCOPIC DIAGNOSIS RECTAL POLYP, BIOPSY: * Hyperplastic polyp - see note. Note: The tissue is distorted with cautery artifact. MICROSCOPIC DESCRIPTION Slides are reviewed. GROSS DESCRIPTION A. Received in fixative is one container labeled with the patient's name and designated Rectal polyp snare and biopsy. The specimen consists of multiple irregular fragments of light alanis soft tissue that in aggregate measure 0.9 x 4 x 0.2 cm. The specimen is totally submitted in one cassette. mr 12/30/2024 CPT:33958
--- NOTE | 2024-12-30 09:09 | PCM.HP.BLA ---
History and Physical Date of Admission: 12/30/24 OFFICE VISIT Date of Service: 11/03/24 MR#: [id number] Acct: [id number] Name: FRANCINE SWEENEY Rep #: [id number] : 1950 Provider: Dr. Agustín Elkins MD Age/Sex: 74/F Location: [facility] Status: Signed Intake Vital Signs 10/22/2308:54 11/03/2508:27 Height 5 ft 0.25 in 5 ft Weight: 161 lb BMI 31.4 BP 143/81 H Blood Pressure Location Rt brachial Position Sitting Respiration 18 Pulse 73 Pulse Source Monitor Temp 97.6 F L Temp Source Temporal Pulse Oximetry (%) 100 Oxygen Delivery Method room air Intake Visit Reasons: COLONOSCOPY Chief Complaint: colonoscopy Accompanied by: Is patient in pain?: No Allergies No Known Allergies Allergy (Verified 11/03/24 09:28) Medications ?Medication ?Instructions ?Recorded ?Confirmed ?Type calcium carbonate (Calcium 500) 1,200 mg PO DAILY 07/03/18 11/03/24 History meloxicam 7.5 mg tablet 7.5 mg PO DAILY 07/03/18 11/03/24 History potassium 99 mg tablet 99 mg PO DAILY 07/03/18 11/03/24 History vitamins A,C,T-hdjc-iytrwa 4,296 2 cap PO DAILY 07/03/18 11/03/24 History mcg-226 mg-90 mg capsule (PreserVision AREDS) cholecalciferol (vitamin D3) 25 2,000 unit PO DAILY 11/30/18 11/03/24 History mcg (1,000 unit) tablet losartan 100 1 ea PO DAILY 11/30/18 11/03/24 History mg-hydrochlorothiazide 25 mg tablet turmeric root extract 500 mg 500 mg PO DAILY 11/30/18 11/03/24 History capsule Have you fallen in the past year?: No PFSH Medical History (Updated 11/03/24 @ 14:[address] Agustín Elkins MD) Hyperlipemia Valvular heart disease Essential hypertension Pericardial effusion Knee pain Arthritis HTN (hypertension) Surgical History History of basal cell carcinoma excision History of tonsillectomy History of appendectomy History of tubal ligation History of section Family History Other Bladder cancer Colon cancer Social History Smoking Status: Never smoker alcohol intake: current Alcohol type: wine HPI HPI HPI: Patient is a 74-year-old female who presents for need to schedule update surveillance colonoscopy secondary to personal history of polyps and family history of colon cancer. They are referred for surgical consultation from Dr. Peraza. Patient is known to me through care of her related to perforated diverticulitis and multiple operations. Patient has had prior colonoscopy. She describes starting her colon cancer screening at the age of 48 and estimates she has had at least 4 colonoscopies with the last scope coming in [address] Gomez. At that time he identified some diverticulosis but no polyps and gave her a 5-year follow-up recommendation. She also shares that her mother was diagnosed with colon cancer at the age of 76 and ultimately succumbed to this diagnosis. She is unsure if her mother was ever diagnosed with polyps prior to this event. She notes that her mother was previously diagnosed with a salivary gland tumor. Patient has no personal history of colon cancer, inflammatory bowel disease, or diverticulitis. They describe their bowel habits as regular. They have approximately 1 bowel movements per day and spend roughly a few minutes on the toilet without significant straining. They have not noticed recent bleeding or dark stools. The patient's weight is not stable and she shares she has experienced some slight weight gain over the holidays. The patient is not prescribed anticoagulants/blood thinners but she does take turmeric. Relevant prior abdominal surgical history includes: None Patient does not have a significant history of GERD/heartburn ROS General General: No weight change, appetite, fatigue, colon cancer, breast cancer or weakness HEENT HEENT: Yes eye surgery; No difficulty swallowing, eye injury, swollen glands or hoarseness Additional Details: cataracts Endo Endocrine: No thyroid disease, diabetes mellitus, thyroid cancer, Hair loss, heat intolerance or cold intolerance Skin Skin: No rash or changing moles Musc Musculoskeletal: Yes arthritis; No back problems, rheumatoid arthritis, gout or joint pain Cardio Cardiovascular: Yes high blood pressure; No murmur, pacemaker, heart disease, atrial fibrillation, heart attack, heart stent, palpitations, shortness of breat with exertion or chest pain Psych Psychiatric: No depression, anxiety or hearing voices Resp Respiratory: No shortness of breath, No sleep apnea, No cough, No COPD, No asthma, No emphysema and No wheezing Gastro Gastrointestinal: No abdominal pain, No nausea or vomiting, No diarrhea, No constipation, No blood in stool, No acid reflux, No hemorrhoids, No ulcers, No gallbladder problem and No black,tarry stools Bobby Hematologic: No blood thinners, No blood disorders, No bleeding, No anemia and No blood clots Neuro Neurologic: No numbness, No tingling and No weakness Exam Const General: cooperative and comfortable Orientation: alert, awake and oriented x3 Resp Effort & Inspection: normal respiratory effort GI Other: Nondistended, soft, nontender to palpation x 4 quadrants Assessment and Plan Assessment and Plan (1) Family history of colon cancer: Status: Acute Comment: Patient is a 74-year-old female with past history of colon polyps on prior colon cancer screening as well as a family history of colon cancer diagnosed in her mother in her mid 70s. Patient's last colonoscopy was 5 years ago with 5-year follow-up recommendation. She denies any present GI concerns. Thus we will plan to proceed with scheduling surveillance colonoscopy at our mutual convenience. She is advised that she will need to complete a bowel prep in anticipation of the procedure and this prep was described. Additionally, I requested that any high-fiber foods are avoided 96 hours prior to proceeding. Lastly I described that I would like her to hold turmeric powder several days leading up to the procedure to minimize her risk for bleeding if any polypectomies are required. Plan: Plan will be to complete colonoscopy on first mutually agreeable date under local MAC. Pre-procedure prep discussed and paper instructions provided. Patient is also made aware that she will need to have a nascar driver with her the day of the procedure. I have examined the patient and the H&P has been reviewed. There are no clinical changes since date of exam. Patient confirms she completed prep for today's procedure. Brief overview of the procedure was given, however, patient has had several prior colonoscopies. Her only complaint is that she is hungry. Her exam is benign. Will proceed to endoscopy suite for colonoscopy as described above.
--- NOTE | 2024-12-30 10:02 | PCM.POST.ANE ---
Anesthesia: Postop Eval I Current Vital Signs Temperature: 97.7 F Pulse Rate: 86 Blood Pressure: 92/54 Respiratory Rate: 16 Pulse Ox: 98 Oxygen Delivery Method: Room Air Assessment Airway patent: Yes Spontaneous unlabored respirations: Yes Mental status: Awake and Calm nausea: No Vomiting: No Anesthesia Complication: No Fluid Hydration Crystalloid volume administer (ml): 60 Total IV fluid infused: 60 Progress Note Anesthesia document: Postop Eval 1 completed: Yes
--- NOTE | 2024-12-30 10:53 | OP.CCLET_ITS ---
12/30/2024 Eleanor Peraza Md Re : Colonoscopy procedure for Chaya Ovaller Karmen This procedure was performed on December. My impressions and recommendations are as follows: Impressions : - Perianal skin tags found on perianal exam. - Diverticulosis in the sigmoid colon. No specimens collected. - One 12 mm polyp in the rectum, removed with a hot snare. Resected and retrieved. - One 2 mm polyp in the rectum. Biopsied. - The examination was otherwise normal on direct and retroflexion views. Recommendations : - Discharge patient to home (via wheelchair). - Resume previous diet today. - No aspirin, ibuprofen, naproxen, or other non-steroidal anti-inflammatory drugs for 2 days after biopsy. - Await pathology results. - Repeat colonoscopy date to be determined after pending pathology results are reviewed for surveillance based on pathology results. - Telephone my office for pathology results in 1 week. My findings are described in the full procedure note, which is enclosed. If I can be of further assistance, please feel free to contact me at Doctor phone number(s): , Work: . Sincerely, Agustín Elkins MD 12/30/2024 10:52:26 AM This report has been signed electronically.
--- NOTE | 2024-12-30 10:53 | OP.COLON_ITS ---
Patient Name: Chaya Ravi Procedure Date: 12/30/2024 9:05 AM Date of : 1950 Age: 74 Procedure: Colonoscopy Indications: High risk colon cancer surveillance: Personal history of colonic polyps Providers: Agustín Elkins MD Referring MD: Eleanor Peraza Md Medicines: Monitored Anesthesia Care Patient Profile: Last Colonoscopy: several years ago. Complications: No immediate complications. Estimated blood loss: Minimal. Procedure: Pre-Anesthesia Assessment: - The heart rate, respiratory rate, oxygen saturations, blood pressure, adequacy of pulmonary ventilation, and response to care were monitored throughout the procedure. After I obtained informed consent, the scope was passed under direct vision. Throughout the procedure, the patient's blood pressure, pulse, and oxygen saturations were monitored continuously. The Colonoscope was introduced through the anus and advanced to the cecum, identified by the ileocecal valve. The colonoscopy was somewhat difficult due to a tortuous colon. Successful completion of the procedure was aided by using scope torsion. The patient tolerated the procedure well. Scope In: 9:24:38 AM Scope Withdrawal Time 0 hours 11 minutes 53 seconds Scope Out: 9:52:15 AM Total Procedure Duration Time 0 hours 27 minutes 37 seconds Findings: Skin tags were found on perianal exam. Multiple medium-mouthed diverticula were found in the sigmoid colon. No biopsies or other specimens were collected for this exam. A 12 mm polyp was found in the rectum. The polyp was semi-pedunculated. The polyp was removed with a hot snare. Resection and retrieval were complete. Estimated blood loss: none. A 2 mm polyp was found in the rectum. The polyp was sessile. Biopsies were taken with a cold forceps for histology. Estimated blood loss was minimal. The exam was otherwise without abnormality on direct and retroflexion views. Impression: - Perianal skin tags found on perianal exam. - Diverticulosis in the sigmoid colon. No specimens collected. - One 12 mm polyp in the rectum, removed with a hot snare. Resected and retrieved. - One 2 mm polyp in the rectum. Biopsied. - The examination was otherwise normal on direct and retroflexion views. Recommendation: - Discharge patient to home (via wheelchair). - Resume previous diet today. - No aspirin, ibuprofen, naproxen, or other non-steroidal anti-inflammatory drugs for 2 days after biopsy. - Await pathology results. - Repeat colonoscopy date to be determined after pending pathology results are reviewed for surveillance based on pathology results. - Telephone my office for pathology results in 1 week. Procedure Code(s): --- Professional --- 46133, Colonoscopy, flexible; with removal of tumor(s), polyp(s), or other lesion(s) by snare technique 63157, 59, Colonoscopy, flexible; with biopsy, single or multiple Diagnosis Code(s): --- Professional --- Z86.010, Personal history of colonic polyps D12.8, Benign neoplasm of rectum K64.4, Residual hemorrhoidal skin tags K57.30, Diverticulosis of large intestine without perforation or abscess without bleeding CPT copyright 2021 [employer]. All rights reserved. The codes documented in this report are preliminary and upon admitting officer review may be revised to meet current compliance requirements. Agustín Elkins MD 12/30/2024 10:52:26 AM This report has been signed electronically. Number of Addenda: 0 Note Initiated On: 12/30/2024 9:05 AM
--- NOTE | 2024-12-30 11:24 | PCM.POSTANE2 ---
Anesthesia Postop Eval I Sum Postop Eval Completion status Anesthesia document: Postop Eval 1 completed: Yes Anesthesia Postop Eval I Summary Anesthesia Postop Eval I Summary: Anesthesia Postop Eval I: Assessment Summary Airway patent Yes 12/30/24 10:03 [email or web address] Spontaneous unlabored Yes 12/30/24 10:03 [email or web address] respirations Mental status Awake,Calm 12/30/24 10:03 [email or web address] nausea No 12/30/24 10:03 [email or web address] Vomiting No 12/30/24 10:03 [email or web address] Anesthesia Postop Eval I: Fluid Summary Crystalloid volume administer 60 12/30/24 10:03 [email or web address] (ml) Colloids volume administered ( ml) Blood Product volume administered (ml) Total IV fluid infused 60 12/30/24 10:03 [email or web address] Anesthesia Postop Eval I: Summary Notes Anesthesia Complication No 12/30/24 10:03 [email or web address] Anesthesia Complication Comment: Post-operative progress note Anesthesia: Postop Eval II Evaluation Mental status: Awake Pain Level: 0 nausea: No Vomiting: No Complications Anesthesia Complication: No
== END 2024-12-30 11:28 | disposition home or self-care (01) ==
LOC: EN 07:22 → AC 07:23
PROVIDERS: PCP Family Medicine; Referring Provider Family Medicine; Visit Provider Surgery
PROC: 0DJD8ZZ Inspection of Lower Intestinal Tract, Via Natural or Artificial Opening Endoscopic (ICD-10-PCS; CPT 45378; principal; 2024-12-30 08:25)
DX: Z12.11 Encounter for screening for malignant neoplasm of colon (principal); K57.30 Diverticulosis of large intestine without perforation or abscess without bleeding; Z86.0100 Personal history of colon polyps, unspecified; K64.4 Residual hemorrhoidal skin tags; Z80.0 Family history of malignant neoplasm of digestive organs; I10 Essential (primary) hypertension; Z90.49 Acquired absence of other specified parts of digestive tract; K62.1 Rectal polyp; Z79.899 Other long term (current) drug therapy; E78.5 Hyperlipidemia, unspecified
CPT/HCPCS: 45380; 45385; 88305; A4216; J2405